=== PATIENT | female | born 1975 ===

== ENCOUNTER 2016-08-06 14:22 | Emergency (ER) | payer OTHER ==
[2016-08-06 14:31] VITALS: BP 121/85; PULSE 87; RESP 17; TEMP 98.8; O2SAT 99
--- NOTE | 2016-08-06 15:20 | ED PDOC ---
HPI: Skin/Bite Injury Time Seen by Provider: 08/06/16 14:34 Chief Complaint (Nursing): Abnormal Skin Integrity Chief Complaint (Provider): Rash History Per: Patient, [employer] ([employer] #[id number] ) History/Exam Limitations: no limitations Onset/Duration Of Symptoms: Intermittent Episodes Current Symptoms Are (Timing): Still Present Quality Of Symptoms: Itching Additional Complaint(s): Anabella Garcias is a 40 y/o female presenting to the ER on 08/06/2016 with complaints of a rash for two weeks. History obtained per sourcing engineer #[id number]. Per sourcing engineer, Patient reports rash was initially localized in her arms, predominantly her hands. Since onset, it has radiated to her eyes and back as well. Patient states the rash presents itself in an intermittent manner. Rash is described as "itchy". She additionally states she had a similar presentation four years ago in which she had a biopsy performed. Past Medical History Reviewed: Historical Data, Nursing Documentation, Vital Signs Vital Signs: Last Vital Signs Temp 98.8 F 08/06/16 14:27 Pulse 87 08/06/16 14:27 Resp 17 08/06/16 14:27 BP 121/85 08/06/16 14:27 Pulse Ox 99 08/06/16 15:28 - Medical History PMH: No Chronic Diseases Denies: Asthma, Diabetes - Surgical History Surgical History: No Surg Hx - Family History Family History: States: Unknown Family Hx - Social History Current smoker - smoking cessation education provided: No Alcohol: None Drugs: Denies - Home Medications Home Medications: Ambulatory Orders Medication Instructions Recorded Atropine/Diphenoxylate [Lonox 2 tab PO Q6H PRN #30 tab 04/25/15 0.025 MG-2.5 MG] Sucralfate [Carafate] 1 gm PO Q6H PRN #30 tablet 04/25/15 DiphenhydrAMINE [Benadryl] 1 - 2 cap PO Q6 PRN #30 cap 08/06/16 - Allergies Allergies/Adverse Reactions: Allergies Allergy/AdvReac Type Severity Reaction Status Date / Time No Known Allergies Allergy Verified 08/06/16 14:27 Review of Systems ROS Statement: Except As Marked, All Systems Reviewed And Found Negative Constitutional: Negative for: Fever Skin: Positive for: Rash Neurological: Negative for: Weakness, Numbness Physical Exam - Reviewed Nursing Documentation Reviewed: Yes Vital Signs Reviewed: Yes - Physical Exam Appears: Positive for: Non-toxic, No Acute Distress Head Exam: Positive for: ATRAUMATIC, NORMOCEPHALIC Skin: Positive for: Rash ((+) urticarial rash on left volar forearm with positive blanching ) Eye Exam: Positive for: Normal appearance Neck: Positive for: Normal, Painless ROM Extremity: Positive for: Normal ROM. Negative for: Deformity, Swelling Neurologic/Psych: Positive for: Alert, Oriented. Negative for: Motor/Sensory Deficits - ECG O2 Sat by Pulse Oximetry: 99 Medical Decision Making Medical Decision Makin:34 Initial Impression- 40 y/o female with an allergic reaction Pt will be discharged routinely with Rx for Benadryl. Encouraged pt to schedule a follow-up with referred specialist within 2-3 days. Advised to return if symptoms persist or worsen. Condition is stable for discharge at this time. Clinical Impression- Allergic Reaction Documented by Phyllis Montanez, acting as a scribe for Pollo Toure PA-C All medical record entries made by the Scribe were at my direction and personally dictated by me. I have reviewed the chart and agree that the record accurately reflects my personal performance of the history, physical exam, medical decision making, and the department course for this patient. I have also personally directed, reviewed, and agree with the discharge instructions and disposition. Disposition - Clinical Impression Clinical Impression: Allergic reaction - Patient ED Disposition Is Patient to be Admitted: No - Disposition Referrals: [facility] [Outside] [facility] [Outside] Disposition Time: 15:00 Condition: STABLE Prescriptions: DiphenhydrAMINE [Benadryl] 1 - 2 cap PO Q6 PRN #30 cap PRN Reason: Itching / Pruritus Instructions: Acute Rash (ED) Print Language: LAO
== END 2016-08-06 15:13 | disposition home or self-care (01) ==
LOC: H.ER 14:22
DX: T78.40XA Allergy, unspecified, initial encounter (principal)

== ENCOUNTER 2017-01-14 09:32 | Day surgery (SDC) | payer SELFPAY ==
[2016-12-03 10:56] VITALS: BMI 29.2
[2017-01-14] MEDS ORDERED: Lactated Ringer's 1,000 ML IV ONE (10:17)
[2017-01-14] MEDS ORDERED: Propofol 10 mg/ml Inj (20 ML) ONE (11:51)
[2017-01-14] MEDS ORDERED: Lidocaine 2% MPF (5 ml) Inj ONE (11:51)
[2017-01-14 12:18] VITALS: TEMP 98
[2017-01-14 12:30] VITALS: BP 105/65; PULSE 67; RESP 18; O2SAT 97
== END 2017-01-14 13:30 | disposition home or self-care (01) ==
LOC: H.ENDO 09:32
PROVIDERS: ATTEND Internal Medicine Gastroenterology
DX: K30 Functional dyspepsia (principal); K29.70 Gastritis, unspecified, without bleeding
CPT/HCPCS: 43239; 88305; J2704; J3010; J7120